=== PATIENT | male | born 1970 | race Caucasian/White ===

== ENCOUNTER 2024-12-17 22:25 | Emergency (ER) | payer SELFPAY ==
[2024-12-17 22:43] VITALS: BP 144/86
[2024-12-17 23:45] VITALS: BP 155/88; BMI 28.1
[2024-12-17] MEDS: ADACEL 0.5 ML IM (23:58)
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
[2024-12-18 01:56] VITALS: BP 131/91
== END 2024-12-18 02:02 | disposition home or self-care (01) ==
LOC: EMR 22:25
PROVIDERS: EMERGENCY PHYSICIAN Emergency Medicine; FAMILY PHYSICIAN Family Medicine
DX: S50.312A Abrasion of left elbow, initial encounter (principal); V89.2XXA Person injured in unspecified motor-vehicle accident, traffic, initial encounter; Y92.410 Unspecified street and highway as the place of occurrence of the external cause; Z23 Encounter for immunization
CPT/HCPCS: 99283; 90471; 73080; 73564; 90715